=== PATIENT | male | born 1980 | race Hispanic/Latino ===

== ENCOUNTER 2020-09-08 08:06 | Day surgery (SDC) | payer OTHER ==
[2020-09-08] MEDS ORDERED: ONDANSETRON 4 MG/2 ML INJ IV ONE (08:15)
[2020-09-08] MEDS ORDERED: HYDROmorphone 1 MG/1 ML INJ IV ONE (08:15)
[2020-09-08] MEDS ORDERED: diphenhydrAMINE 50 MG/ML VIAL IV ONE (08:15)
[2020-09-08 08:50] LABS: Basophils % (Auto) 0.2 % (0.0-1.8); Eosinophils # (Auto) 0.1 K/mm3 (0.0-0.4); Eosinophils % (Auto) 0.6 % (0.0-4.3); Hematocrit 45.6 % (35.5-45.6); Hemoglobin 16.1 gm/dl (11.8-15.2); Lymphocytes # (Auto) 1.2 K/mm3 (1.2-5.4); Lymphocytes % (Auto) 9.9 % (13.4-35.0); Mean Corpuscular HGB Conc 35 % (32-34); Mean Corpuscular Volume 86 fl (84-94); Monocytes # (Auto) 0.9 K/mm3 (0.0-0.8); Monocytes % (Auto) 7.5 % (0.0-7.3); Platelet Count 195 K/mm3 (140-440); Red Blood Count 5.31 M/mm3 (3.65-5.03); Red Cell Distribution Width 12.5 % (13.2-15.2)
[2020-09-08 08:54] LABS: Bacteria,Urine 1+ /HPF (Negative); Bilirubin,Urine NEG (Negative); Blood,Urine LG (Negative); Color,Urine Yellow (Yellow); Mucus,Urine FEW /HPF; Protein,Urine <15 mg/dL mg/dL (Negative); Urobilinogen,Urine < 2.0 mg/dL (<2.0)
[2020-09-08 09:01] LABS: INR 1.08 (0.87-1.13)
[2020-09-08 09:02] LABS: Partial Thromboplastin Time 25.2 Sec. (24.2-36.6)
[2020-09-08 09:09] LABS: Calcium 9.6 mg/dL (8.4-10.2)
[2020-09-08 09:13] LABS: Albumin 4.3 g/dL (3.9-5); Bilirubin,Direct 0.3 mg/dL (0-0.2)
--- NOTE | 2020-09-08 09:25 | Emergency Department Report ---
ED General Adult HPI - General Chief complaint: Urogenital-Male Stated complaint: KIDNEY STONES Time Seen by Provider: 09/08/20 08:14 Source: patient, family Mode of arrival: Wheelchair Limitations: No Limitations - History of Present Illness Initial comments: This a 40-year-old male with recurrent left flank pain radiating to his left lower quadrant. This is been associated with a 4 mm kidney stone on the left seen on CAT scan. The patient was sent to the emergency department by Dr. Anthony for repeat CAT scan and analgesia. His urologist stated that he may require endoscopic retrieval. -: Gradual, days(s) Location: back Radiation: abdomen Severity scale (0 -10): 8 Quality: aching Consistency: intermittent Improves with: none Worsens with: none Associated Symptoms: other (Dysuria) - Related Data Allergies Allergy/AdvReac Type Severity Reaction Status Date / Time No Known Allergies Allergy Unverified 09/08/20 08:16 ED Review of Systems ROS: Stated complaint: KIDNEY STONES Other details as noted in HPI Constitutional: denies: chills, fever Eyes: denies: eye pain, eye discharge, vision change ENT: denies: ear pain, throat pain Respiratory: denies: cough, shortness of breath, wheezing Cardiovascular: denies: chest pain, palpitations Endocrine: no symptoms reported Gastrointestinal: as per HPI, abdominal pain. denies: nausea, diarrhea Genitourinary: denies: urgency, dysuria Musculoskeletal: denies: back pain, joint swelling, arthralgia Skin: denies: rash, lesions Neurological: denies: headache, weakness, paresthesias Psychiatric: denies: anxiety, depression Hematological/Lymphatic: denies: easy bleeding, easy bruising ED Past Medical Hx - Past Medical History Previous Medical History?: Yes Additional medical history: Kidneystones - Surgical History Past Surgical History?: Yes Additional Surgical History: Colonoscopy - Social History Smoking Status: Never Smoker Substance Use Type: None ED Physical Exam - General Limitations: No Limitations General appearance: alert, in no apparent distress - Head Head exam: Present: atraumatic, normocephalic - Eye Eye exam: Present: normal appearance. Absent: scleral icterus - ENT ENT exam: Present: mucous membranes moist - Neck Neck exam: Present: normal inspection - Respiratory Respiratory exam: Present: normal lung sounds bilaterally. Absent: respiratory distress - Cardiovascular Cardiovascular Exam: Present: regular rate, normal rhythm. Absent: systolic murmur, diastolic murmur, rubs, gallop - GI/Abdominal GI/Abdominal exam: Present: soft, normal bowel sounds. Absent: distended, tenderness, guarding, rebound - Rectal Rectal exam: Present: deferred - Extremities Exam Extremities exam: Present: normal inspection - Back Exam Back exam: Present: normal inspection - Neurological Exam Neurological exam: Present: alert, oriented X3, CN II-XII intact. Absent: motor sensory deficit - Psychiatric Psychiatric exam: Present: normal affect, normal mood - Skin Skin exam: Present: warm, dry, intact, normal color. Absent: rash ED Course Vital Signs 09/08/20 09/08/20 09/08/20 08:14 13:15 13:20 Temperature 99.0 F 98.1 F Pulse Rate 76 100 H 87 Respiratory 18 12 14 Rate Blood Pressure 134/93 142/95 140/91 O2 Sat by Pulse 95 100 100 Oximetry 09/08/20 09/08/20 09/08/20 13:25 13:30 13:50 Temperature Pulse Rate 87 88 Respiratory 12 12 16 Rate Blood Pressure 142/92 148/89 O2 Sat by Pulse 100 100 Oximetry - Reevaluation(s) Reevaluation #1: Discussed with Dr. Jimenez. He stated that the patient will go to the OR for retrieval if they are available. I gave him a dose of ceftriaxone and cultured his urine as he stated that he was having significant dysuria. His urine was somewhat equivocal for UTI but there was bacteria present. 09/08/20 10:16 Reevaluation #2: Patient was sent to outpatient surgery per urologist. 09/08/20 13:56 ED Medical Decision Making - Lab Data Result diagrams: 09/08/20 08:14 09/08/20 08:14 Laboratory Results - last 24 hr 09/08/20 09/08/20 09/08/20 08:14 08:14 08:15 WBC 12.6 H RBC 5.31 H Hgb 16.1 H Hct 45.6 MCV 86 MCH 30 MCHC 35 H RDW 12.5 L Plt Count 195 Lymph % (Auto) 9.9 L Hardy % (Auto) 7.5 H Eos % (Auto) 0.6 Baso % (Auto) 0.2 Lymph # (Auto) 1.2 Hardy # (Auto) 0.9 H Eos # (Auto) 0.1 Baso # (Auto) 0.0 Seg Neutrophils % 81.8 H Seg Neutrophils # 10.3 H PT 13.9 INR 1.08 APTT 25.2 Sodium 140 Potassium 3.8 Chloride 103.2 Carbon Dioxide 29 Anion Gap 12 BUN 18 Creatinine 1.4 H Estimated GFR 56 BUN/Creatinine Ratio 13 Glucose 118 H Calcium 9.6 Total Bilirubin Direct Bilirubin Indirect Bilirubin AST ALT Alkaline Phosphatase Total Protein Albumin Albumin/Globulin Ratio Urine Color Urine Turbidity Urine pH Ur Specific [place] Urine Protein Urine Glucose (UA) Urine Ketones Urine Blood Urine Nitrite Urine Bilirubin Urine Urobilinogen Ur Leukocyte Esterase Urine WBC (Auto) Urine RBC (Auto) Urine Bacteria (Auto) Urine Mucus 09/08/20 09/08/20 08:15 Unknown WBC RBC Hgb Hct MCV MCH MCHC RDW Plt Count Lymph % (Auto) Hardy % (Auto) Eos % (Auto) Baso % (Auto) Lymph # (Auto) Hardy # (Auto) Eos # (Auto) Baso # (Auto) Seg Neutrophils % Seg Neutrophils # PT INR APTT Sodium Potassium Chloride Carbon Dioxide Anion Gap BUN Creatinine Estimated GFR BUN/Creatinine Ratio Glucose Calcium Total Bilirubin 1.40 H Direct Bilirubin 0.3 H Indirect Bilirubin 1.1 AST 23 ALT 39 Alkaline Phosphatase 69 Total Protein 7.2 Albumin 4.3 Albumin/Globulin Ratio 1.5 Urine Color Yellow Urine Turbidity Clear Urine pH 6.0 Ur Specific [place] 1.009 Urine Protein <15 mg/dl Urine Glucose (UA) Neg Urine Ketones Tr Urine Blood Lg Urine Nitrite Neg Urine Bilirubin Neg Urine Urobilinogen < 2.0 Ur Leukocyte Esterase Tr Urine WBC (Auto) 2.0 Urine RBC (Auto) 9.0 Urine Bacteria (Auto) 1+ Urine Mucus Few - Radiology Data Radiology results: report reviewed FINDINGS: ABDOMEN: There is moderate left pelvocaliectasis and ureterectasis. There are a couple of tiny nonobstructive renal calculi bilaterally, the largest of which measures approximately 2 mm in the right mid kidney. There are bilateral simple cyst-appearing renal lesions. There is moderate generalized decreased density of the liver parenchyma compared to the spleen without focal lesion. The gallbladder, bile ducts, pancreas, spleen, adrenal glands and bowel demonstrate no significant abnormality. No adenopathy is seen. There is mild bibasilar subsegmental atelectasis, greater on the left. PELVIS: The left ureter is dilated to the ureterovesical junction. There is a 5 x 3 mm calculus at that site, best seen on axial image #166 of series #2. The distal right ureter, urinary bladder and prostate gland are normal. A normal appendix is present and there is no evidence of diverticulitis. No abnormal mass or fluid collection is seen. I do not identify a hernia. No acute osseous abnormality is present. There is bilateral spondylolysis at L5 without spondylolisthesis. IMPRESSION: 1. 5 x 3 mm calculus at the left ureterovesical junction is causing moderate hydronephrosis. Minimal bilateral nonobstructive nephrolithiasis. 2. Moderate diffuse fatty infiltration of the liver. 3. Bilateral spondylolysis at L5 without spondylolisthesis. Critical care attestation.: If time is entered above; I have spent that time in minutes in the direct care of this critically ill patient, excluding procedure time. ED Disposition Clinical Impression: Renal colic on left side Hydronephrosis Qualifiers: Hydronephrosis type: with ureteral calculous obstruction Qualified Code(s): N13.2 - Hydronephrosis with renal and ureteral calculous obstruction Disposition: TO HOME OR SELFCARE Is pt being admited?: No Does the pt Need Aspirin: No Condition: Stable Instructions: Kidney Stones, [id number], Cystoscopy, Ureteral Stent Implantation, Care After Additional Instructions: ACTIVITY - NO STRENUOUS ACTIVITIES. DIET -LOW FAT LOW CHOLESTEROL LOW SALT. DO INCREASE ORAL FLUIDS 8 CUPS WATER PER DAY. THERE IS A STRING EXISTING YOUR PENIS. STRING IS TAPED TO PENIS DO NOT REMOVE OR PULL. APPOINTMENT - DR ANTHONY WANTS TO SEE YOU IN 7 DAYS CALL FOR APPOINTMENT AND FOR ANY QUESTIONS OR CONCERNS RELATED TO TODAY'S PROCEDURE. Referrals: RICARDO ANTHONY MD [Staff Physician] - 7 Days PRIMARY CARE, [Referring] - 3-5 Days Forms: Outpatient Surgery ID Inst. Time of Disposition: 13:57
--- NOTE | 2020-09-08 09:57 | Cat Scan Report ---
CT OF THE ABDOMEN AND PELVIS WITHOUT CONTRAST INDICATION / CLINICAL INFORMATION: Abdominal pain starting last Thursday. TECHNIQUE: All CT scans at this location are performed using CT dose reduction for ALARA by means of automated e xposure control. COMPARISON: None available. FINDINGS: ABDOMEN: There is moderate left pelvocaliectasis and ureterectasis. There are a couple of tiny nonobs tructive renal calculi bilaterally, the largest of which measures approximately 2 mm in the right mid kidney. There are bilateral simple cyst-appearing renal lesions. There is moderate generalized decreased density of the liver parenchyma compared to the spleen withou t focal lesion. The gallbladder, bile ducts, pancreas, spleen, adrenal glands and bowel demonstrate n o significant abnormality. No adenopathy is seen. There is mild bibasilar subsegmental atelectasis, g reater on the left. PELVIS: The left ureter is dilated to the ureterovesical junction. There is a 5 x 3 mm calculus at th at site, best seen on axial image #166 of series #2. The distal right ureter, urinary bladder and pro state gland are normal. A normal appendix is present and there is no evidence of diverticulitis. No abnormal mass or fluid co llection is seen. I do not identify a hernia. No acute osseous abnormality is present. There is bilat eral spondylolysis at L5 without spondylolisthesis. IMPRESSION: 1. 5 x 3 mm calculus at the left ureterovesical junction is causing moderate hydronephrosis. Minimal bilateral nonobstructive nephrolithiasis. 2. Moderate diffuse fatty infiltration of the liver. 3. Bilateral spondylolysis at L5 without spondylolisthesis. Signer Name: Lino Scales MD Signed: 09/08/2020 9:53 AM Workstation Name: [id number]
[2020-09-08] MEDS ORDERED: cefTRIAXone/NS 1 GM/50 ML 1 GM/50 ML BAG IV ONE (10:13)
[2020-09-08] MEDS ORDERED: SUCCINYLCHOLINE CHLORIDE 200 MG/10 ML INJ MDV ONE (11:02)
[2020-09-08] MEDS ORDERED: MIDAZOLAM 2 MG/2 ML INJ ONE (11:02)
[2020-09-08] MEDS ORDERED: propofoL 200 MG/20 ML VIAL IV ONE (11:02)
[2020-09-08] MEDS ORDERED: dexAMETHasone 20 MG/5 ML VIAL ONE (11:02)
[2020-09-08] MEDS ORDERED: LIDOCAINE MPF (2%) 20 MG/1 ML VIAL 5 ML ONE (11:02)
[2020-09-08] MEDS ORDERED: ONDANSETRON 4 MG/2 ML INJ ONE (11:02)
[2020-09-08] MEDS ORDERED: GLYCOPYRROLATE 0.4 MG/2 ML INJ ONE (11:02)
[2020-09-08] MEDS ORDERED: fentaNYL 100 MCG/2 ML INJ ONE (11:02)
[2020-09-08] MEDS ORDERED: PHENYLEPHRINE/NS 1,000 MCG/10 ML SYRINGE (OR USE) IV ONE (11:02)
[2020-09-08] MEDS ORDERED: LACTATED RINGERS 1,000 ML ONE (11:12)
[2020-09-08] MEDS ORDERED: FAMOTIDINE 20 MG/2 ML INJ IV ONE (11:14)
--- NOTE | 2020-09-08 11:20 | Anesthesia Consultation ---
Anesthesia Consult and Med Hx Date of service: 09/08/20 - Airway Anesthetic Teeth Evaluation: Good ROM Head & Neck: Adequate Mental/Hyoid Distance: Adequate Mallampati Class: Class III Intubation Access Assessment: Possibly Difficult - Pre-Operative Health Status ASA Pre-Surgery Classification: ASA2 Proposed Anesthetic Plan: General - Pulmonary Hx Smoking: No Hx Asthma: No Hx Respiratory Symptoms: No SOB: No COPD: No Home Oxygen Therapy: No Hx Pneumonia: No Hx Sleep Apnea: Yes - Cardiovascular System Hx Hypertension: No (pre hypertensive) Hx Coronary Artery Disease: No Hx Heart Attack/AMI: No Hx Angina: No Hx Percutaneous Transluminal Coronary Angioplasty (PTCA): No Hx Cardia Arrhythmia: No Hx Pacemaker: No Hx Internal Defibrillator: No Hx Valvular Heart Disease: No Hx Heart Murmur: No Hx Peripheral Vascular Disease: No - Central Nervous System Hx Neuromuscular Disorder: No Hx Seizures: No CVA: No Hx Back Pain: No Hx Psychiatric Problems: Yes (anexity) - Gastrointestinal Hx Ulcer: No Hx Gastroesophageal Reflux Disease: Yes (omeprazole) - Endocrine Hx Renal Disease: No Hx End Stage Renal Disease: No Hx Cirrhosis: No Hx Liver Disease: No Hx Insulin Dependent Diabetes: No Hx Non-Insulin Dependent Diabetes: No Hx Thyroid Disease: No Hx Hypothyroidism: No Hx Hyperthyroidism: No - Hematic Hx Anemia: No Hx Sickle Cell Disease: No - Other Systems Hx Alcohol Use: No Hx Substance Use: No Hx Cancer: No Hx Obesity: Yes
--- NOTE | 2020-09-08 11:21 | Anesthesia Day of Surgery ---
Anesthesia Day of Surgery - Day of Surgery Patient Examined: Yes Patient H&P Reviewed: Yes Patient is NPO: Yes
--- NOTE | 2020-09-08 12:34 | Post Operative Note ---
Date of procedure: 09/08/20 Pre-op diagnosis: left ureteral stone Post-op diagnosis: same Findings: stone Procedure: cysto ureteroscopy Anesthesia: CHINO Surgeon: RICARDO CHRISTIANSON Estimated blood loss: none Specimen disposition: given to patient/family Condition: stable Disposition: PACU
--- NOTE | 2020-09-08 12:35 | Discharge Summary ---
Short Stay Discharge Plan Activity: other (no straining ) Weight Bearing Status: Full Weight Bearing Diet: low fat, low cholesterol, low salt Special Instructions: other (inc fluids ) Durable Medical Equipment Needed Upon Discharge: other (has j stent ) Follow up with: PRIMARY CARE, [Referring] - 3-5 Days RICARDO CHRISTIANSON MD [Staff Physician] - 7 Days
[2020-09-08] MEDS ORDERED: SODIUM CHLORIDE 0.9% IRRIG SOLN 2000 ML IR ONE (12:45)
[2020-09-08] MEDS ORDERED: HYDROmorphone 1 MG/1 ML INJ ONE (12:58)
[2020-09-08] MEDS ORDERED: HYDROcodone/ACETAMINOPHEN 5-325 MG TAB PO PRN (13:30)
[2020-09-08] MEDS ORDERED: HYDROmorphone 1 MG/1 ML INJ IV PRN (13:31)
--- NOTE | 2020-09-08 13:47 | Post Anesthesia Evaluation ---
- Post Anesthesia Evaluation Patient Participated: Yes Airway Patent: Yes Stable Respiratory Function: Yes Nausea/Vomiting: No Temp > 96.8F: Yes Pain Manageable: Yes Adequeate Hydration: Yes Anesthesia Complications: No Block Receding Appropriately: Not Applicable Patient on Ventilator: No
[2020-09-08 14:30] VITALS: BP 142/87
--- NOTE | 2020-09-08 15:43 | Fluoroscopy Report ---
INTRAOPERATIVE FLUOROSCOPY: RETROGRADE PYELOGRAM 4 IMAGES INDICATION / CLINICAL INFORMATION: REMOVAL OF LEFT URETERAL STONE. TECHNIQUE: Intraoperative spot images were obtained during the procedure. FINDINGS: Exam is suboptimal as the patient's hands overlie the lower abdomen. A left double-J ureteral stent w as placed in expected position Fluoroscopy Time: 48 seconds. Fluoroscopy Images: 4. Signer Name: Ludwin Patel MD Signed: 09/08/2020 3:38 PM Workstation Name: [id number]
--- NOTE | 2020-09-08 18:18 | Operative Report ---
PREOPERATIVE DIAGNOSES: Severe left flank pain, left obstructing ureteral stone. POSTOPERATIVE DIAGNOSES: Severe left flank pain, left obstructing ureteral stone. PROCEDURE: Cystoscopy, left retrograde, left ureteral balloon dilatation, ureteroscopy, stone extraction, double-J stent. SURGEON: Dr. Anthony. ANESTHESIA: General. FINDINGS: This is a gentleman with severe pain, agonizing nausea and vomiting for 3-4 days. He now presents to the ER. DESCRIPTION OF PROCEDURE: The patient was brought to the operating room and placed on the operating table. Following induction of anesthesia, placed in lithotomy position, prepped and draped in usual sterile fashion. Cystourethroscopy showed the stone and severely swollen left orifice. Retrograde confirmed this. A wire coiled up in the kidney. Balloon dilatation was carried out and the stone was extracted with 3-prong grasper and a basket through the bladder. The patient tolerated the procedure well. A double-J stent 6 x 26 coiled in the kidney and bladder and we left the string, brought to recovery in stable condition. JOB# [id number] TONYA/TALIB
== END 2020-09-08 08:07 | disposition home or self-care (01) ==
LOC: OR 08:06 → ED 08:06 → OR 08:07 → EDSTATUS 12:38
PROVIDERS: ATTEND Emergency Medicine
DX: N13.2 Hydronephrosis with renal and ureteral calculous obstruction (principal); G47.30 Sleep apnea, unspecified; K21.9 Gastro-esophageal reflux disease without esophagitis; F41.9 Anxiety disorder, unspecified; E66.9 Obesity, unspecified; Z68.31 Body mass index [BMI] 31.0-31.9, adult
CPT/HCPCS: 36415; 52332; 52352; 74176; 74420; 80048; 80076; 81001; 85025; 85610; 85730; 87086; 99285; A4217; C1726; C2617; J0330; J0696; J1100; J1170; J1200; J2250; J2370; J2405; J2704; J3010; J7120; Q9967